=== PATIENT | male | born 1960 | race Caucasian/White ===

== ENCOUNTER 2018-04-13 19:23 | Emergency (ER) | payer SELFPAY ==
[~2018-04-13] VITALS: Ht 185.4 cm; Wt 90.7 kg
--- NOTE | 2018-04-13 19:25 | NUR ---
TO BED 8 AMBULATORY C/O L SIDED WEAKNESS WITH SLURRED SPEECH X30 MIN [employer]. PT AAOX4 NO ACUTE DISTRESS NOTED, RESP EVEN AND UNLABORED. PUPILS PERRLA. DURING ME ASSESSMENT PT UNABLE TO MOVE LUE AND LLE. MINOR FACIAL WEAKNESS NOTED PER PT REPORT. PLACE PT ON CARDIAC MONITORING, CONTINUOUS POX. WILL CARRY OUT ORDERS.
[2018-04-13] MEDS ORDERED: IOHEXOL-350 100 ML VIAL IV ONE (19:35)
[2018-04-13] MEDS ORDERED: CT SWABBABLE VALVE TRANS SET 1 EA INFUS.SET MC ONE (19:35)
--- NOTE | 2018-04-13 19:36 | NUR ---
PT TRANSPORTED TO RADIOLOGY FOR CT HEAD.
[2018-04-13 19:43] LABS: BASOPHILS % (AUTO) 0.3 % (0.0-2.0); EOSINOPHILS % (AUTO) 2.3 % (0.0-6.0); HEMATOCRIT 46 % (39-51); HEMOGLOBIN 15.6 g/dL (13.5-17.5); LYMPHOCYTES # (AUTO) 3.1 /CMM (0.8-4.8); MEAN CORPUSCULAR HGB CONC 34 g/dl (31.0-36.0); MEAN CORPUSCULAR VOLUME 86 fL (80-96); MONOCYTES # (AUTO) 0.8 /CMM (0.1-1.30); MONOCYTES % (AUTO) 7.9 % (2.0-12.0); NEUTROPHILS # (AUTO) 5.8 /CMM (1.8-8.9); NEUTROPHILS % (AUTO) 58.5 % (43.0-81.0); PLATELET COUNT (AUTO) 251 /CMM (150-450); RDW COEFFICIENT OF VARIATION 11.9 (11.5-15.0); RED BLOOD CELL COUNT(AUTO) 5.32 MIL/uL (4.5-6.0); WHITE BLOOD COUNT (AUTO) 9.9 K/uL (4.3-11.0)
--- NOTE | 2018-04-13 19:50 | NUR ---
PT BACK FROM RADIOLOGY. ER MD AT BEDSIDE TALKING TO PT.
--- NOTE | 2018-04-13 19:51 | NUR ---
TELENEUROLOGY BEAMED IN TO EVAL PT WITH LALIT HERNANDEZ, AND ER MD OCAMPO.
--- NOTE | 2018-04-13 19:56 | NUR ---
PT REFUSE ALTEPLASE, RISKS AND BENEFITS EXPLAINED BY ER MD OCAMPO. PT VERBALIZE UNDERSTANDING OR ALL RISKS AND BENEFITS EXPLAINED BY ER .
[2018-04-13 19:59] LABS: CALCIUM, SERUM 9.1 mg/dL (8.5-10.1); CARBON DIOXIDE 31 mmol/L (21-32); CHLORIDE 102 mmol/L (98-107); GLUCOSE 279 mg/dL (74-106); POTASSIUM 3.2 mmol/L (3.5-5.1); SODIUM SERUM 139 mmol/L (136-145); UREA NITROGEN, BLOOD 13 mg/dL (7-18)
[2018-04-13 20:02] LABS: INR 0.89 (0.85-1.15)
[2018-04-13 20:05] LABS: ALBUMIN 4.3 g/dL (3.4-5.0); ALKALINE PHOSPHATASE 70 U/L (46-116); ASPARTATE AMINOTRANSFERASE 15 U/L (15-37); BILIRUBIN,DIRECT 0.1 mg/dL (0.0-0.2); BILIRUBIN,TOTAL 0.4 mg/dL (0.2-1.0); TOTAL PROTEIN, SERUM 7.5 g/dL (6.4-8.2)
--- NOTE | 2018-04-13 20:05 | NUR ---
H2O PROVIDED TO PT PER ER MD ORDER. PT ABLE TO DRINK H2O WITHOUT ANY DIFFICULTY SWALLOWING, NO CHOKING NOTED.
[2018-04-13 20:09] LABS: TROPONIN I < 0.017 ng/mL (0.00-0.056)
[2018-04-13 20:15] LABS: ALANINE AMINOTRANSFERASE 26 U/L (12-78)
--- NOTE | 2018-04-13 20:41 | NUR ---
ER TALKING TO DR. BAHENA REGARDING PT ADMISSION.
--- NOTE | 2018-04-13 20:54 | NUR ---
PT REQUESTING TO SPEAK TO ER MD AND WANTS TO SIGN OUT AMA, ALL RISKS EXPLAINED TO PT INCLUDING . PT VERBALIZE UNDERSTANDING. ER MD MADE AWARE.
[2018-04-13] MEDS ORDERED: IV NS 0.9% 1,000 ML IV PRN (20:56)
[2018-04-13] MEDS ORDERED: MAG HYDROX/AL HYDROX/SIMETH 30 ML UDC PO PRN (21:00)
[2018-04-13] MEDS ORDERED: ONDANSETRON HCL/PF 4 MG/2 ML VIAL IVP PRN (21:00)
[2018-04-13] MEDS ORDERED: Z GUARD REMEDY 2 OZ OINT TP PRN (21:00)
[2018-04-13] MEDS ORDERED: ZOLPIDEM TARTRATE 5 MG TABLET PO PRN (21:00)
[2018-04-13] MEDS ORDERED: ASPIRIN 325 MG TABLET PO ONE (21:00)
[2018-04-13] MEDS ORDERED: ENOXAPARIN SODIUM 40 MG/0.4 ML DISP.SYRIN SQ SCH (21:00)
[2018-04-13] MEDS ORDERED: ACETAMINOPHEN 325 MG TABLET PO PRN (21:00)
[2018-04-13] MEDS ORDERED: MAGNESIUM HYDROXIDE 30 ML UDC PO PRN (21:00)
[2018-04-13] MEDS ORDERED: HYDROCODONE/APAP 5/325MG 1 EACH TABLET PO PRN (21:00)
--- NOTE | 2018-04-13 21:20 | NUR ---
ER MD AT BEDSIDE TALKING TO PT REGARDING SIGNING OUT AMA.
--- NOTE | 2018-04-13 21:32 | NUR ---
IV removed. Catheter intact and site benign. Pressure and 4x4 applied to site. No bleeding noted. Patient does not wish to proceed with medical care recommended by Dr. ZELAYA). Patient given information related to possible complications, up to and including , which could occur as a result of leaving the hospital at this time. Patient verbalizes understanding of risks involved due to leaving against medical advice. Patient has signed AMA form. pt aaox4 no acute distress noted, resp even and unlabored.
[2018-04-13 21:33] VITALS: BP 153/87
[2018-04-13 21:53] LABS: CHOLESTEROL 178 mg/dL (<200); TRIGLYCERIDES 263 mg/dL (30-150)
[2018-04-13 21:54] LABS: HDL CHOLESTEROL 37 mg/dL (40-60); LDL 102 mg/dL (0-99)
[2018-04-13] MEDS ORDERED: BLOOD SUGAR DIAGNOSTIC 1 EACH STRIP IN SCH (22:00)
== END 2018-04-13 21:34 | disposition left against medical advice (07) ==
LOC: ER 19:25
DX: I63.9 Cerebral infarction, unspecified (principal); R53.1 Weakness; R47.81 Slurred speech; E11.9 Type 2 diabetes mellitus without complications; R00.0 Tachycardia, unspecified; R51 Headache
CPT/HCPCS: 36415; 70450; 70496; 70498; 71045; 80048; 80061; 80076; 82962; 84484; 85025; 85730; 93005; 99285; A4606; Q9967; Z7610